=== PATIENT | female | born 2000 | race Caucasian/White ===

== ENCOUNTER 2018-02-10 11:46 | Inpatient (IN) | payer OTHER ==
[2018-02-10] MEDS ORDERED: NORMAL SALINE 1000 ML 1,000 ML IV ONE ×2 (12:48→16:27)
[2018-02-10 13:01] LABS: HEMOGLOBIN 11.9 g/dL (12.0-15.5); MEAN CORPUSCULAR HGB CONC 33.9 g/dL (32.0-36.0); MEAN CORPUSCULAR VOLUME 88 fl (80-97); PLATELET COUNT 214 10^3/uL (150-450); RED BLOOD COUNT 3.96 10^6/uL (3.72-5.28); RED CELL DISTRIBUTION WIDTH 14.1 % (11.5-14.0); WHITE BLOOD COUNT 20.8 10^3/uL (4.0-10.5)
[2018-02-10 13:05] LABS: ALANINE AMINOTRANSFERASE 24 U/L (5-35); ALBUMIN 3.9 g/dL (3.7-5.6); ALKALINE PHOSPHATASE 69 U/L (50-135); ANION GAP 16 (5-19); ASPARTATE AMINO TRANSFERASE 34 U/L (5-30); BILIRUBIN,DIRECT 0.3 mg/dL (0.0-0.4); BILIRUBIN,TOTAL 0.5 mg/dL (0.2-1.3); BLOOD UREA NITROGEN 8 mg/dL (7-20); CALCIUM 9.2 mg/dL (8.4-10.2); CARBON DIOXIDE 17 mmol/L (22-30); CHLORIDE 102 mmol/L (98-107); GLUCOSE 123 mg/dL (75-110); POTASSIUM 3.5 mmol/L (3.6-5.0); SODIUM 135.4 mmol/L (137-145); TOTAL PROTEIN 7.2 g/dL (6.3-8.2)
[2018-02-10 13:15] LABS: ABSOLUTE LYMPHOCYTES# (MANUAL) 0.4 10^3/uL (0.5-4.7); ABSOLUTE NEUTROPHILS# (MANUAL) 19.3 10^3/uL (1.7-8.2); BASOPHILS % (MANUAL) 0 % (0-2); EOSINOPHILS % (MANUAL) 0 % (0-6); LYMPHOCYTES % (MANUAL) 2 % (13-45); MONOCYTES % (MANUAL) 5 % (3-13); SEGMENTED NEUTROPHILS % (MAN) 93 % (42-78); TOTAL CELLS COUNTED 100
[2018-02-10 13:17] LABS: ANISOCYTOSIS SLIGHT; OVALOCYTES SLIGHT; PLATELET CLUMPS PRESENT; PLATELET COMMENT ADEQUATE; POIKILOCYTOSIS SLIGHT; TOXIC GRANULATION 1+; TOXIC VACUOLATION PRESENT
[2018-02-10] MEDS ORDERED: ACETAMINOPHEN 325 MG TABLET PO ONE ×2 (13:39→16:28)
--- NOTE | 2018-02-10 13:39 | ER Document Report ---
ED General - General Chief Complaint: Nausea/Vomiting Stated Complaint: FEVER,VOMITING Time Seen by Provider: 02/10/18 12:10 Mode of Arrival: Ambulatory Information source: Patient TRAVEL OUTSIDE OF THE [place] IN LAST 30 DAYS: No - HPI Patient complains to provider of: Fever body aches side pain Onset: Other - This 17-year-old female, 19 weeks presents for evaluation of pain along the right side as well as fever with some associated cough, she was seen in urgent care yesterday which time she underwent dip urinalysis was told that she did not have a urinary tract infection and will be fine was subsequently sent home. She is use Tylenol once since then to try and help with her fever but has not used any other things to try and help with it. Nothing seemed to make it any better, nothing seemed to make any worse she has had her gallbladder removed in the past because she does have some issues related to her gastrointestinal tract. - Related Data Allergies/Adverse Reactions: cinnamon Allergy (Verified 02/10/18 11:47) Latex, Natural Rubber Allergy (Verified 02/10/18 11:47) Past Medical History - General Information source: Patient - Social History Smoking Status: Never Smoker Chew tobacco use (# tins/day): No Frequency of alcohol use: None Drug Abuse: None Family History: None Patient has suicidal ideation: No Patient has homicidal ideation: No Renal/ Medical History: Denies: Hx Peritoneal Dialysis Review of Systems - Review of Systems -: Yes All other systems reviewed and negative Physical Exam - Vital signs Vitals: Temp Pulse Resp BP Pulse Ox 100.2 F 165 H 21 89/41 L 97 02/10/18 11:50 02/10/18 11:50 02/10/18 11:50 02/10/18 11:50 02/10/18 11:50 - General General appearance: Appears well In distress: None - HEENT Head: Normocephalic Eyes: Normal Conjunctiva: Normal Cornea: Normal Extraocular movements intact: Yes Ears: Normal External canal: Normal Nasal: Normal Mouth/Lips: Normal Mucous membranes: Normal - Respiratory Respiratory status: No respiratory distress Chest status: Nontender Breath sounds: Normal Chest palpation: Normal - Cardiovascular Rhythm: Tachycardia Heart sounds: Normal auscultation Murmur: No - Abdominal Inspection: Normal, Other - Obviously gravid abdomen Distension: No distension Tenderness: Nontender - Back Back: Normal - Extremities General upper extremity: Normal inspection, Nontender, Normal strength, Normal temperature General lower extremity: Normal inspection, Nontender, Normal strength, Normal temperature - Neurological Neuro grossly intact: Yes Cognition: Normal Orientation: AAOx4 Betsy Coma Scale Eye Opening: Spontaneous [place] Coma Scale Verbal: Oriented [place] Coma Scale Motor: Obeys Commands Betsy Coma Scale Total: 15 - Psychological Associated symptoms: Normal affect Course - Re-evaluation Re-evalutation: 02/10/18 17:01 This 17-year-old woman presented for evaluation of fevers as well as flank pain. Have concerned this may represent pyelonephritis or potential renal stone with infection, could also have a developing pneumonia she does endorse that she does have a cough. Was seen in urgent care yesterday underwent a urine dip which did not demonstrate any obvious infection. Patient is profoundly tachycardic with low blood pressure on arrival, she is also febrile. We will administer fluid resuscitation with 2 L of normal saline, will obtain a lactate blood count CMP and obtain urinalysis as well as cultures. Patient's heart rate improved after administration of 2 L normal saline, administered Tylenol to help patient's fever. Urinalysis is nondiagnostic however patient clinically has symptoms suggestive of pyelonephritis, will obtain renal ultrasound to assess for possible developing hydro-nephrosis. We will also obtain chest x-ray for possible developing pneumonia. No pneumonia identified on patient's chest x-ray, no identified hydronephrosis left side of the normal range along the right kidney. We will administer Rocephin IV for patient's probable urinary tract infection. Have contacted on-call sizing sprayer Dr. Peres to evaluate patient for admission and observation, at this time she remains modestly tachycardic with a normal blood pressure. She says that she feels a little bit better after fluids and antibiotics. We will plan for continued monitoring and reassessment as necessary. Her elevated lactate will be rechecked initially was 2.8. - Vital Signs Vital signs: Temp Pulse Resp BP Pulse Ox 101 F H 165 H 23 109/52 L 100 02/10/18 14:51 02/10/18 11:50 02/10/18 14:00 02/10/18 14:00 02/10/18 14:00 - Laboratory Result Diagrams: 02/10/18 12:00 02/10/18 12:00 Laboratory results interpreted by me: 02/10/18 02/10/18 02/10/18 12:00 12:00 13:04 WBC 20.8 H Hgb 11.9 L Hct 35.0 L RDW 14.1 H Seg Neuts % (Manual) 93 H Lymphocytes % (Manual) 2 L Abs Neuts (Manual) 19.3 H Abs Lymphs (Manual) 0.4 L Sodium 135.4 L Potassium 3.5 L Carbon Dioxide 17 L Glucose 123 H Lactic Acid AST 34 H Urine Protein 30 H Urine Ketones 20 H 02/10/18 13:30 WBC Hgb Hct RDW Seg Neuts % (Manual) Lymphocytes % (Manual) Abs Neuts (Manual) Abs Lymphs (Manual) Sodium Potassium Carbon Dioxide Glucose Lactic Acid 2.8 H AST Urine Protein Urine Ketones Critical Care Note - Critical Care Note Total time excluding time spent on procedures (mins): 20 Discharge - Discharge Clinical Impression: Pyelonephritis Condition: Fair Disposition: ADMITTED INPATIENT Admitting Provider: Austen Peres Unit Admitted: Medical Floor
[2018-02-10 13:43] LABS: APPEARANCE,URINE SLIGHTLY-CLOUDY; BILIRUBIN,URINE NEGATIVE (NEGATIVE); COLOR,URINE YELLOW; GLUCOSE, URINE NEGATIVE (NEGATIVE); KETONES,URINE 20 mg/dL (NEGATIVE); LEUKOCYTE ESTERASE,URINE NEGATIVE (NEGATIVE); NITRITE,URINE NEGATIVE (NEGATIVE); PROTEIN,URINE 30 mg/dL (NEGATIVE); URINE SPECIFIC GRAVITY 1.023; UROBILINOGEN,URINE NEGATIVE mg/dL (<2.0)
[2018-02-10] MEDS ORDERED: CEFTRIAXONE INJ 1000 MG VIAL IV ONE (14:31)
--- NOTE | 2018-02-10 14:58 | EKG REPORT ---
SEVERITY:- ABNORMAL ECG - SINUS TACHYCARDIA NONSPECIFIC T ABNORMALITIES, INFERIOR LEADS : Confirmed by: Edgar Ni MD 10-Feb-2018 14:57:56
--- NOTE | 2018-02-10 15:56 | RADIOLOGY REPORT (SQ) ---
EXAM DESCRIPTION: CHEST 2 VIEWS COMPLETED DATE/TIME: 02/10/2018 2:50 pm REASON FOR STUDY: fever and cough , fever, vomiting for 2 days COMPARISON: None. EXAM PARAMETERS: NUMBER OF VIEWS: two views TECHNIQUE: Digital Frontal and Lateral radiographic views of the chest acquired. Patient's abdomen p shola was double shielded during the exposure RADIATION DOSE: NA LIMITATIONS: none FINDINGS: LUNGS AND PLEURA: No opacities, masses or pneumothorax. No pleural effusion. MEDIASTINUM AND HILAR STRUCTURES: No masses or contour abnormalities. HEART AND VASCULAR STRUCTURES: Heart normal size. No evidence for failure. BONES: No acute findings. HARDWARE: Clips right upper quadrant post cholecystectomy. OTHER: Patient was double shielded during the exposures IMPRESSION: NO ACUTE RADIOGRAPHIC FINDING IN THE CHEST. TECHNICAL DOCUMENTATION: JOB ID: [id number] [employer]- All Rights Reserved Reading location - IP/workstation name: [email or web address]
--- NOTE | 2018-02-10 16:20 | RADIOLOGY REPORT (SQ) ---
EXAM DESCRIPTION: U/S RETROPERITON (RENAL/AORTA) COMPLETED DATE/TIME: 02/10/2018 3:58 pm REASON FOR STUDY: right sided hydro concern COMPARISON: None. TECHNIQUE: Dynamic and static grayscale images acquired of the kidneys and bladder and recorded on P ACS. Additional selected color Doppler and spectral images recorded. LIMITATIONS: None. FINDINGS: RIGHT KIDNEY: Normal size, 11.2 cm in length normal echogenicity. No solid or suspicious m asses. No calcifications. AP diameter of the right renal pelvis measures 10 mm in diameter. This is within normal range for th e patient's 19 weeks . LEFT KIDNEY: Normal size, 10.4 cm in length. Normal echogenicity. No solid or suspicious masses. No hydronephrosis. No calcifications. BLADDER: Decompressed, not well seen. OTHER FINDINGS: No other significant finding. IMPRESSION: Mild prominence of the right renal pelvis which is still within normal limits given the patient's gestational status. No left hydronephrosis. No right or left urinary calculi are identified. TECHNICAL DOCUMENTATION: JOB ID: [id number] [employer]- All Rights Reserved Reading location - IP/workstation name: [email or web address]
--- NOTE | 2018-02-10 17:35 | PDOC H&P ---
History of Present Illness Admission Date/PCP: 02/10/18 17:08 Patient complains of: Fever and right flank pain. History of Present Illness: KASSIDY BEARD is a 17 year old female 17 yo G1 at 19 wks of with fever, and right flank pain seen in the ER today. She recently moved from [place]. She was seen at urgent care yesterday and did not improve and presented to the ER today. Past Surgical History Past Surgical History: Reports: None Social History Smoking Status: Never Smoker Family History Family History: None Parental Family History Reviewed: Yes Children Family History Reviewed: Yes Sibling(s) Family History Reviewed.: Yes Medication/Allergy Allergies/Adverse Reactions: cinnamon Allergy (Verified 02/10/18 11:47) Latex, Natural Rubber Allergy (Verified 02/10/18 11:47) Review of Systems Constitutional: PRESENT: chills, fever(s) Gastrointestinal: PRESENT: vomiting Musculoskeletal: PRESENT: back pain Physical Exam - Physical Exam Vital Signs: Temp Pulse Resp BP Pulse Ox 101 F H 165 H 23 109/52 L 100 02/10/18 14:51 02/10/18 11:50 02/10/18 14:00 02/10/18 14:00 02/10/18 14:00 Intake & Output 02/09/18 02/10/18 02/11/18 06:59 06:59 06:59 Intake Total 1000 Balance 1000 General appearance: PRESENT: no acute distress Head exam: PRESENT: atraumatic Eye exam: PRESENT: conjunctiva pink, EOMI, PERRLA. ABSENT: scleral icterus Ear exam: PRESENT: normal external ear exam Cardiovascular exam: PRESENT: RRR. ABSENT: diastolic murmur, rubs, systolic murmur Pulses: PRESENT: normal dorsalis pedis pul, +2 pedal pulses bilateral GI/Abdominal exam: PRESENT: normal bowel sounds, soft. ABSENT: distended, guarding, mass, organolmegaly, rebound, tenderness Rectal exam: PRESENT: deferred Extremities exam: PRESENT: full ROM. ABSENT: calf tenderness, clubbing, pedal edema Musculoskeletal exam: PRESENT: ambulatory - tender on right flank Psychiatric exam: PRESENT: appropriate affect, normal mood. ABSENT: homicidal ideation, suicidal ideation Skin exam: PRESENT: dry, intact, warm. ABSENT: cyanosis, rash Result Impressions: Chest X-Ray 02/10/18 14:32 IMPRESSION: NO ACUTE RADIOGRAPHIC FINDING IN THE CHEST. Renal Ultrasound 02/10/18 15:08 IMPRESSION: Mild prominence of the right renal pelvis which is still within normal limits given the patient's gestational status. No left hydronephrosis. No right or left urinary calculi are identified. Assessment & Plan - Diagnosis (1) Pyelonephritis Is this a current diagnosis for this admission?: Yes Plan: IV antibiotics and IV fluids. - Time Time Spent: 30 to 50 Minutes
[2018-02-10] MEDS: RINGERS SOLUTION,LACTATED 1,000 ML IV PRN (18:30)
[2018-02-10] MEDS ORDERED: CEFTRIAXONE 1 GM/D5W RTU 1 GM/50 ML RTUPB IV SCH (22:00)
[2018-02-10] MEDS ORDERED: CEFTRIAXONE INJ 500 MG VIAL ONE (22:45)
[2018-02-10] MEDS: ACETAMINOPHEN 325 MG TABLET PO PRN (23:07)
[2018-02-11] MEDS: RINGERS SOLUTION,LACTATED 1,000 ML IV PRN ×3 (01:39→19:45)
[2018-02-11 07:25] LABS: HEMATOCRIT 29.5 % (36.0-47.0); HEMOGLOBIN 10.2 g/dL (12.0-15.5); MEAN CORPUSCULAR HEMOGLOBIN 30.6 pg (27.0-33.4); MEAN CORPUSCULAR HGB CONC 34.5 g/dL (32.0-36.0); MEAN CORPUSCULAR VOLUME 89 fl (80-97); PLATELET COUNT 162 10^3/uL (150-450); RED BLOOD COUNT 3.32 10^6/uL (3.72-5.28); WHITE BLOOD COUNT 20.2 10^3/uL (4.0-10.5)
[2018-02-11] MEDS: ACETAMINOPHEN 325 MG TABLET PO PRN ×3 (08:56→21:57)
[2018-02-11] MEDS ORDERED: ONDANSETRON HCL INJ/PF 4 MG/2 ML SDV IV PRN (09:42)
[2018-02-11] MEDS: CEFTRIAXONE SODIUM 1,000 MG in NORMAL SALINE 50 ML IV SCH ×2 (09:43→21:57)
[2018-02-11] MEDS: PRENATAL VITAMIN W DHA CAPSULE PO SCH (09:48)
[2018-02-11] MEDS ORDERED: CEFTRIAXONE SODIUM 1,000 MG in DEXTROSE 5%-WATER 50 ML IV SCH (10:00)
--- NOTE | 2018-02-11 10:41 | PDOC PROGRESS REPORT ---
Subjective Progress Note for:: 02/11/18 Subjective:: right flank pain, fever, pyelo Reason For Visit: PYELONEPHRITIS Physical Exam - Physical Exam Vital Signs: Temp Pulse Resp BP Pulse Ox 99.4 F 121 H 22 110/54 L 97 02/11/18 07:56 02/11/18 07:56 02/11/18 07:56 02/11/18 07:56 02/11/18 07:56 Intake & Output 02/10/18 02/11/18 02/12/18 06:59 06:59 06:59 Intake Total 2594 Output Total 400 Balance 2194 General appearance: PRESENT: no acute distress, well-developed, well-nourished Head exam: PRESENT: atraumatic, normocephalic Respiratory exam: PRESENT: clear to auscultation abbey, symmetrical, unlabored Cardiovascular exam: PRESENT: RRR. ABSENT: diastolic murmur, rubs, systolic murmur Pulses: PRESENT: normal dorsalis pedis pul, +2 pedal pulses bilateral Vascular exam: PRESENT: normal capillary refill GI/Abdominal exam: PRESENT: normal bowel sounds, soft, other - right CVAT. ABSENT: distended, guarding, mass, organolmegaly, rebound, tenderness Rectal exam: PRESENT: deferred Extremities exam: PRESENT: full ROM. ABSENT: calf tenderness, clubbing, pedal edema Neurological exam: PRESENT: alert, awake, oriented to person, oriented to place , oriented to time, oriented to situation, CN II-XII grossly intact. ABSENT: motor sensory deficit Psychiatric exam: PRESENT: appropriate affect, normal mood. ABSENT: homicidal ideation, suicidal ideation Skin exam: PRESENT: dry, intact, warm. ABSENT: cyanosis, rash Result Laboratory Results: 02/11/18 07:01 02/11/18 07:01 WBC 20.2 H RBC 3.32 L Hgb 10.2 L Hct 29.5 L MCV 89 MCH 30.6 MCHC 34.5 RDW 14.0 Plt Count 162 Impressions: Chest X-Ray 02/10/18 14:32 IMPRESSION: NO ACUTE RADIOGRAPHIC FINDING IN THE CHEST. Renal Ultrasound 02/10/18 15:08 IMPRESSION: Mild prominence of the right renal pelvis which is still within normal limits given the patient's gestational status. No left hydronephrosis. No right or left urinary calculi are identified. Status: Imported from PACS Assessment & Plan - Diagnosis (1) Pyelonephritis Is this a current diagnosis for this admission?: Yes Plan: Pyelonephritis in . Cont BID rocephin IV. ANtipyretics and Antiemetics ordered. Pt's room is very hot. Reviewed with nursing/FPGA ENGINEER to not turn up temp in room as this patient is febrile. Last fever was 103 just recently. If still febrile after 48 hours will need repeat imagin of kidney. only recieved 3 doses of abx at this time. Cont abx. Repeat labs this pm and tomorrow am. (2) Pyelonephritis affecting in second trimester Is this a current diagnosis for this admission?: Yes Plan: 19wks. f/u with OB as outpatient. - Time Time Spent with patient: 15-24 minutes Medications reviewed and adjusted accordingly: Yes Anticipated discharge: Home Within: within 72 hours - Inpatient Certification Based on my medical assessment, after consideration of the patient's comorbidities, presenting symptoms, or acuity I expect that the services needed warrant INPATIENT care.: Yes I certify that my determination is in accordance with my understanding of Medicare's requirements for reasonable and necessary INPATIENT services [42 CFR 412.3e].: Yes Medical Necessity: Failure to Improve With Outpatient Therapy, Need For IV Fluids, Need for IV Antibiotics, Risk of Complication if Not Cared For in Hospital
[2018-02-11 17:42] LABS: HEMATOCRIT 27.2 % (36.0-47.0); HEMOGLOBIN 9.3 g/dL (12.0-15.5); MEAN CORPUSCULAR VOLUME 88 fl (80-97); PLATELET COUNT 153 10^3/uL (150-450); RED BLOOD COUNT 3.09 10^6/uL (3.72-5.28); RED CELL DISTRIBUTION WIDTH 14.1 % (11.5-14.0); WHITE BLOOD COUNT 17.8 10^3/uL (4.0-10.5)
[2018-02-12] MEDS: RINGERS SOLUTION,LACTATED 1,000 ML IV PRN ×3 (04:46→22:51)
[2018-02-12] MEDS: ACETAMINOPHEN 325 MG TABLET PO PRN ×2 (08:05→17:40)
[2018-02-12] MEDS: PRENATAL VITAMIN W DHA CAPSULE PO SCH (09:40)
[2018-02-12] MEDS: CEFTRIAXONE SODIUM 1,000 MG in NORMAL SALINE 50 ML IV SCH ×2 (09:41→21:55)
--- NOTE | 2018-02-12 09:53 | PDOC PROGRESS REPORT ---
Subjective Progress Note for:: 02/12/18 Subjective:: feeling much better today. last temp >100.4 at 11:00 am yesterday. tolerating a regular diet without difficulty. Is feeling occasional flutters. Reason For Visit: PYELONEPHRITIS Physical Exam - Physical Exam Vital Signs: Temp Pulse Resp BP Pulse Ox 98.9 F 99 H 20 109/58 L 100 02/12/18 08:26 02/12/18 08:26 02/12/18 08:26 02/12/18 08:26 02/12/18 08:26 Intake & Output 02/11/18 02/12/18 02/13/18 06:59 06:59 06:59 Intake Total 2594 4871 Output Total 400 Balance 2194 4871 Weight 52.3 kg General appearance: PRESENT: no acute distress, cooperative GI/Abdominal exam: PRESENT: soft - gravid at umbilicus Result Laboratory Results: 02/11/18 17:16 02/11/18 02/11/18 17:16 17:16 WBC 17.8 H RBC 3.09 L Hgb 9.3 L Hct 27.2 L MCV 88 MCH 30.0 MCHC 34.0 RDW 14.1 H Plt Count 153 Lactic Acid 0.9 Impressions: Chest X-Ray 02/10/18 14:32 IMPRESSION: NO ACUTE RADIOGRAPHIC FINDING IN THE CHEST. Renal Ultrasound 02/10/18 15:08 IMPRESSION: Mild prominence of the right renal pelvis which is still within normal limits given the patient's gestational status. No left hydronephrosis. No right or left urinary calculi are identified. Assessment & Plan - Diagnosis (1) Pyelonephritis Is this a current diagnosis for this admission?: Yes (2) Pyelonephritis affecting in second trimester Is this a current diagnosis for this admission?: Yes - Time Time Spent with patient: Less than 15 minutes Smoking Cessation Education: 3 to 10 minutes Medications reviewed and adjusted accordingly: Yes Anticipated discharge: Home Within: within 24 hours - plan for discharge in AM with continued improvement.
[2018-02-13 03:48] VITALS: BP 96/48
--- NOTE | 2018-02-13 07:04 | PDOC DISCHARGE SUMMARY ---
General - Admit/Disc Date/PCP Admission Date/Primary Care Provider: 02/10/18 17:08 Discharge Date: 02/13/18 - Discharge Diagnosis (1) Pyelonephritis Is this a current diagnosis for this admission?: Yes (2) Pyelonephritis affecting in second trimester Is this a current diagnosis for this admission?: Yes - Additional Information Home Medications: Ferrous Sulfate 1 tab PO DAILY 02/10/18 95/Iron Fum/Folic/Dha [ + Dha Combo Pack] 1 tab PO DAILY History of Present Illness History of Present Illness: KASSIDY BEARD is a 17 year old female Hospital Course Hospital Course: has responded well to antibiotics. pain much improved. Physical Exam - Physical Exam Vital Signs: Temp Pulse Resp BP Pulse Ox 98.7 F 84 16 96/48 L 99 02/13/18 03:48 02/13/18 03:48 02/13/18 03:48 02/13/18 03:48 02/13/18 03:48 Intake & Output 02/12/18 02/13/18 02/14/18 06:59 06:59 06:59 Intake Total 4871 2670 Balance 4871 2670 Weight 52.3 kg General appearance: PRESENT: no acute distress, cooperative GI/Abdominal exam: PRESENT: soft - no CVA tenderness on percussion Result Impressions: Chest X-Ray 02/10/18 14:32 IMPRESSION: NO ACUTE RADIOGRAPHIC FINDING IN THE CHEST. Renal Ultrasound 02/10/18 15:08 IMPRESSION: Mild prominence of the right renal pelvis which is still within normal limits given the patient's gestational status. No left hydronephrosis. No right or left urinary calculi are identified. Plan Discharge Plan: discharge home with cont'd oral antibiotics. keep her scheduled appt with [facility] Time Spent: Less than 30 Minutes
[2018-02-13 07:19] LABS: HEMOGLOBIN 8.7 g/dL (12.0-15.5); RED BLOOD COUNT 2.83 10^6/uL (3.72-5.28)
[2018-02-13 07:44] LABS: HEMATOCRIT 24.8 % (36.0-47.0); MEAN CORPUSCULAR HEMOGLOBIN 30.9 pg (27.0-33.4); MEAN CORPUSCULAR HGB CONC 35.2 g/dL (32.0-36.0); MEAN CORPUSCULAR VOLUME 88 fl (80-97); PLATELET COUNT 155 10^3/uL (150-450); RED CELL DISTRIBUTION WIDTH 14.4 % (11.5-14.0); WHITE BLOOD COUNT 9.2 10^3/uL (4.0-10.5)
== END 2018-02-13 08:30 | disposition home or self-care (01) | DRG 781 ==
LOC: ER 11:46 → EH 17:08 → 2S 18:20
PROVIDERS: ADMIT Obstetrics & Gynecology; ATTEND Obstetrics & Gynecology
DX: O23.02 Infections of kidney in pregnancy, second trimester (principal); Z91.040 Latex allergy status; Z91.018 Allergy to other foods; Z3A.19 19 weeks gestation of pregnancy
CPT/HCPCS: 36415; 71046; 76770; 80053; 81001; 83605; 85025; 85027; 87040; 87086; 87088; 87186; 93005; 93010; 99285; J0696; J2405; J3490; J7030; J7120

== ENCOUNTER 2018-06-10 09:09 | Outpatient (CLI) | payer OTHER ==
--- NOTE | 2018-06-10 09:48 | Non Stress Test Report ---
Non Stress Test Datetime Report Generated by CPN: 06/10/2018 09:47 DEMOGRAPHIC EGA NST: 34.6 INDICATION Indication for Study: Ordered by Provider MONITORING Monitor Explained: Monitor Explained; Test Explained; Patient Verbalized Understanding Time on Monitor: 06/10/2018 09:16 Time off Monitor: 06/10/2018 09:40 NST Duration: 24 NST INTERVENTIONS NST Interventions: None Physician Notified NST: Dr. Mead BABY A: [id number] BABY A Movement : Present Contraction Frequency : none FHR Baseline : 135 Accelerations : 15X15 Decelerations : None Variability : Moderate 6-25bpm NST Review: Meets Criteria for Reactive NST NST Review and Verified By : Pk Barker RN NSSiomara Results: Reactive NST REPORT Report Trigger: Send Report
== END 2018-06-10 09:43 | disposition home or self-care (01) ==
LOC: LC 09:09
PROVIDERS: ATTEND Student in an Organized Health Care Education/Training Program
PROC: 4A1HXCZ Monitoring of Products of Conception, Cardiac Rate, External Approach (ICD-10-PCS; principal; 2018-06-10)
DX: Z34.93 Encounter for supervision of normal pregnancy, unspecified, third trimester (principal)
CPT/HCPCS: 59025

== ENCOUNTER 2018-07-22 05:32 | Inpatient (IN) | payer OTHER ==
[2018-07-22] MEDS ORDERED: RINGERS SOLUTION,LACTATED 300 ML IV ONE (05:46)
[2018-07-22] MEDS ORDERED: MISOPROSTOL 0.1 MG TABLET PV ONE (06:27)
[2018-07-22] MEDS ORDERED: MISOPROSTOL 0.1 MG TABLET ONE (06:28)
[2018-07-22] MEDS: RINGERS SOLUTION,LACTATED 1,000 ML IV PRN ×2 (06:34→16:14)
[2018-07-22 06:42] LABS: ABSOLUTE EOSINOPHILS # (AUTO) 0.2 10^3/uL (0.0-0.6); ABSOLUTE LYMPHOCYTES (AUTO) 2.3 10^3/uL (0.5-4.7); ABSOLUTE NEUT (AUTO) 7.1 10^3/uL (1.7-8.2); BASOPHILS % (AUTO) 0.4 % (0-2); EOSINOPHILS % (AUTO) 2.1 % (0-6); HEMATOCRIT 31.7 % (36.0-47.0); HEMOGLOBIN 10.8 g/dL (12.0-15.5); LYMPHOCYTES % (AUTO) 21.4 % (13-45); MEAN CORPUSCULAR HGB CONC 33.9 g/dL (32.0-36.0); MEAN CORPUSCULAR VOLUME 86 fl (80-97); MONOCYTES % (AUTO) 9.6 % (3-13); PLATELET COUNT 208 10^3/uL (150-450); RED BLOOD COUNT 3.71 10^6/uL (3.72-5.28); RED CELL DISTRIBUTION WIDTH 13.8 % (11.5-14.0); SEGMENTED NEUTROPHILS % (AUTO) 66.5 % (42-78); TOTAL CELLS COUNTED % (AUTO) 100 %; WHITE BLOOD COUNT 10.6 10^3/uL (4.0-10.5)
[2018-07-22 06:49] LABS: APPEARANCE,URINE SLIGHTLY-CLOUDY; BILIRUBIN,URINE NEGATIVE (NEGATIVE); COLOR,URINE YELLOW; GLUCOSE, URINE NEGATIVE (NEGATIVE); KETONES,URINE NEGATIVE (NEGATIVE); LEUKOCYTE ESTERASE,URINE MODERATE (NEGATIVE); NITRITE,URINE NEGATIVE (NEGATIVE); PROTEIN,URINE NEGATIVE (NEGATIVE); URINE SPECIFIC GRAVITY 1.009; UROBILINOGEN,URINE NEGATIVE mg/dL (<2.0)
[2018-07-22 06:51] LABS: URINE AMPHETAMINES SCREEN NEGATIVE; URINE BARBITURATES SCREEN NEGATIVE; URINE BENZODIAZEPINES SCREEN NEGATIVE; URINE COCAINE SCREEN NEGATIVE; URINE MARIJUANA (THC) SCREEN NEGATIVE; URINE METHADONE SCREEN NEGATIVE; URINE PHENCYCLIDINE SCREEN NEGATIVE
--- NOTE | 2018-07-22 12:24 | Admission Physical ---
Datetime Report Generated by CPN: 07/22/2018 12:23 CURRENT ADMISSION Chief Complaint: Scheduled Induction of Labor Indication for Induction: Post Dates Admit Impression : Term, Intrauterine Admit Plan: Admit to Unit; Initiate Labor Induction Protocol ALLERGIES Medication Allergies: No Medication Allergies: Latex, Natural Rubber (07/22/2018); cinnamon (07/22/2018) Latex: Latex Allergies Food Allergies: Cinnamon OBSTETRICAL HISTORY EDC: 07/16/2018 00:00 : 1 Para: 0 Term: 0 : 0 SAB: 0 IAB: 0 Ectopic: 0 Livin Cesareans: 0 VBACs: 0 Multiple Births: 0 Gestational Diabetes: No Rh Sensitization: No Incompetent Cervix: No JULIETA: No Infertility: No ART Treatment: No Uterine Anomaly: No IUGR: No Hx Previous C/S: No Macrosomia: No Hx Loss/Stillborn: No PIH: No Hx : No Placenta Previa/Abruption: No Depression/PP Depression: No PTL/PROM: No Post Hemorrhage: No Current Procedures: Ultrasound; NST Obstetrical History Comments: G1-Current SEE RECORDS Alcohol: No Marijuana : No Cocaine: No Other Illicit Drugs: No Cigarettes: Never Smoker. [id number] MEDICAL HISTORY Diabetes: No Blood Transfusion: No Pulmonary Disease (Asthma, TB): No Breast Disease: No Hypertension: No Golf Cart Maker Surgery: No Heart Disease: No Hosp/Surgery: Yes Autoimmune Disorder: No Anesthetic Complications: No Kidney Disease: No Abnormal Pap Smear: No Neuro/Epilepsy: No Psychiatric Disorders: No Other Medical Diseases: No Hepatitis/Liver Disease: No Significant Family History: No Varicosities/Phlebitis: No Trauma/Violence : No Thyroid Dysfunction: No Medical History Comments: Gallbladder removed-2015 INFECTIOUS HISTORY Gonorrhea: No Genital Herpes: No Chlamydia: Yes Tuberculosis: No Syphilis: No Hepatitis: No HIV/AIDS Exposure: No Rash or Viral Illness: No HPV: No Infectious History Comments: Hx Chlamydia (prior to ) PHYSICAL EXAM General: Normal HEENT: Normal Neurologic: Normal Thyroid: Deferred Heart: Normal Lungs: Normal Breast: Deferred Back: Normal Abdomen: Normal Genitourinary Exam: Normal Extremities: Normal DTRs: Deferred Pelvic Type: Adequate Vital Signs: Reviewed; Within Normal Limits VAGINAL EXAM Dilatation: 1 Effacement: 75 Station: -1 Contraction Comments: irreg FETUS A EGA: 40.6 Monitoring: External US FHR- Baseline: 120 Variability: Moderate 6-25bpm Accelerations: 15X15 Decelerations: None Estimated Weight (gm): 3100 Presentation: Vertex Admit Comment: at 40w6d admitted for IOL. received one dose of cytotec. Cook catheter placed without difficulty at 1140, tolerated well. P:c/w dr mead, will start pitocin, anticipate PLANS FOR LABOR AND DELIVERY Labor and Delivery: None Pain Management: Medications; Epidural Feeding Preference: Formula Benefit of Breast Feed Discussed: Yes Circumcision: No INFORMED CONSENT Assignment: Desiree Mead MD Signature: with User ID: [email or web address] : with User ID: [email or web address]
[2018-07-22] MEDS ORDERED: NALBUPHINE HCL INJ 10 MG/1 ML AMPULE ONE (12:25)
[2018-07-22] MEDS ORDERED: PROMETHAZINE HCL INJ 25 MG/1 ML VIAL ONE (12:25)
[2018-07-22] MEDS ORDERED: PROMETHAZINE HCL INJ 25 MG/1 ML VIAL IV ONE (12:27)
[2018-07-22] MEDS ORDERED: NALBUPHINE HCL INJ 10 MG/1 ML AMPULE INJ ONE (12:27)
[2018-07-22] MEDS ORDERED: OXYTOCIN/NORMAL SALINE 20 UNIT/1,000 ML RTUINJ IV PRN (12:31)
--- NOTE | 2018-07-22 15:57 | L&D Progress Notes ---
PROGRESS NOTES Datetime Report Generated by CPN: 07/22/2018 15:57 PROGRESS NOTE Impression: Normal Progression of Labor Procedures: Sterile Vag Exam Plan: Continue Present Management; Induction Vital Signs : Reviewed; Within Normal Limits Comment: cook catheter out, pitocin not yet started by RN-contractions are irreg with coupling and tripling. continue IOL, start pitocin when needed, anticipate . VAGINAL EXAM Dilatation: 1 Effacement: 75 Station: -1 Contractions: irreg LAST VAGINAL EXAM-NURSING Dilitation: 4.0 Dilitation: 1.0 Dilitation: 1.0 Dilitation: 1.0 Effacement: 80 Effacement: 50 Effacement: 50 Effacement: th Station: -2 Station: -2 Station: -2 Station: -2 MEMBRANES Membranes: Bulging FETUS A FHR - Baseline: 115 Monitoring: External US Variability: Minimal - Undetectable to <=5bpm Accelerations: 10X10 Decelerations: None : 40+6 Estimated Weight (gm): 3100 Presentation: Vertex SIGNATURE SIGNATURE: [id number];[id number];[id number] SIGNATURE: [id number];[id number] SIGNATURE: [id number] Assignment: Desiree Mead MD Signature: with User ID: [email or web address] : with User ID: [email or web address]
[2018-07-22] MEDS ORDERED: OXYTOCIN/NORMAL SALINE 0 UNIT/0 ML RTUINJ ONE (18:35)
--- NOTE | 2018-07-22 19:41 | L&D Progress Notes ---
PROGRESS NOTES Datetime Report Generated by CPN: 07/22/2018 19:41 PROGRESS NOTE Impression: Normal Progression of Labor Procedures: Artificial ROM; Sterile Vag Exam Plan: Continue Present Management; Induction; Anticipate Vaginal Delivery Informed Consent Obtained: Vaginal Delivery; Induction of Labor; Risks, Benefits and Alternatives Discussed Comment: Cvx 5/60/-2. AROM performed with clear fluid. Post GARIMA IOL. Pt considering epidural. May have epidural when she desires. Anticipate . VAGINAL EXAM Dilatation: 5 Effacement: 60 Station: -2 Contractions: q 2-3 Dilitation: 5.0 Dilitation: 5.0 Effacement: 60 Station: -2 MEMBRANES Membranes: Ruptured Amniotic Fluid Color: Clear FETUS A FHR - Baseline: 125 Monitoring: External US Variability: Moderate 6-25bpm Accelerations: 15X15 Decelerations: None FHR Category: Category I FETUS C SIGNATURE: [id number];[id number];[id number] Signature: with User ID: [email or web address]
[2018-07-22] MEDS ORDERED: EPHEDRINE SULFATE INJ 50 MG/1 ML AMPULE ONE (19:45)
[2018-07-22] MEDS ORDERED: LIDOCAINE 1% INJ-PF (10 MG/ML) 30 ML SDV ONE (19:45)
[2018-07-22] MEDS ORDERED: MISOPROSTOL 0.2 MG TABLET ONE (19:45)
[2018-07-22] MEDS ORDERED: OXYTOCIN/NORMAL SALINE 20 UNIT/1,000 ML RTUINJ ONE (19:45)
[2018-07-22] MEDS ORDERED: FENTANYL/BUPIVACAINE/NS/PF 300 MCG/150 ML RTUINJ EPI ONE (19:46)
[2018-07-22] MEDS ORDERED: BUPIVACAINE HCL 0.25 % INJ/PF (2.5 MG/1 ML) 30 ML VIAL ONE (19:46)
[2018-07-22] MEDS ORDERED: MAG HYDROX/AL HYDROX/SIMETH SUSP 30 ML UDCUP ONE (19:52)
[2018-07-23] MEDS ORDERED: DIPHENHYDRAMINE HCL 25 MG CAPSULE PO PRN (02:07)
[2018-07-23] MEDS ORDERED: ACETAMINOPHEN 325 MG TABLET PO PRN (02:07)
[2018-07-23] MEDS ORDERED: PROMETHAZINE HCL INJ 25 MG/1 ML VIAL IV PRN (02:07)
[2018-07-23] MEDS ORDERED: PSEUDOEPHEDRINE HCL 30 MG TABLET PO PRN (02:07)
[2018-07-23] MEDS ORDERED: MEASLES,MUMPS&RUBELLA VACC/PF 0.5 ML VIAL SUBCUT PRN (02:07)
[2018-07-23] MEDS ORDERED: ACETAMINOPHEN WITH CODEINE #3 TABLET PO PRN ×2 (02:07)
[2018-07-23] MEDS ORDERED: GLYCERIN/WITCH HAZEL LEAF 1 EACH MED..PAD TP PRN (02:07)
[2018-07-23] MEDS ORDERED: DIBUCAINE 1% OINTMENT 28 GM TP PRN (02:07)
[2018-07-23] MEDS ORDERED: PROMETHAZINE HCL 25 MG SUPP.RECT PR PRN (02:07)
[2018-07-23] MEDS ORDERED: MAGNESIUM HYDROXIDE SUSP 30 ML UDCUP PO PRN (02:07)
[2018-07-23] MEDS ORDERED: BENZOCAINE/MENTHOL AEROSOL SPRAY 56 ML TOP PRN (02:07)
[2018-07-23] MEDS ORDERED: NA PHOS,M-B/NA PHOS,DI-BA (ADULT) 133 ML ENEMA PR PRN (02:07)
[2018-07-23] MEDS ORDERED: ZOLPIDEM TARTRATE 5 MG TABLET PO PRN (02:07)
[2018-07-23] MEDS ORDERED: OXYTOCIN/NORMAL SALINE 20 UNIT/1,000 ML RTUINJ IV PRN (02:07)
[2018-07-23] MEDS ORDERED: DIPH/PERTUSS(ACELL)/TETANUS VAC/PF 0.5 ML SYR (>=10YO) IM PRN (02:07)
[2018-07-23] MEDS ORDERED: PROMETHAZINE HCL 25 MG TABLET PO PRN (02:07)
[2018-07-23] MEDS ORDERED: IBUPROFEN 800 MG TABLET PO ONE (02:45)
[2018-07-23] MEDS ORDERED: IBUPROFEN 800 MG TABLET ONE (03:00)
[2018-07-23] MEDS: IBUPROFEN 800 MG TABLET PO SCH ×3 (05:50→21:08)
--- NOTE | 2018-07-23 05:53 | Delivery Summary ---
Del Sum A-C Datetime Report Generated by CPN: 07/23/2018 05:53 DELIVERY PERSONNEL DELIVERY PERSONNEL: [id number] Delivery Doctor:: Desiree Mead MD Labor and Delivery Nurse:: Nanda Mccormack RNfood safety director Nurse:: Yadira Cabrera RN Nursery Nurse:: Zoie Hinson RN Bearing Maker/WEARING APPAREL FOLDER: Luzjosé antonio Chowdary, FLUX CORE WELDER MATERNAL INFORMATION Delivery Anesthesia: Epidural Medications After Delivery: Pitocin Drip 20 Units/1000ml NSS Estimated Blood Loss (ml): 100 Maternal Complications: None Provider Comments: VMI delivered in CEE presentation. No nuchal cord. Shoulders and body delivered without difficulty. Cord doubly clamped and cut and infant to maternal abd for NRP. Placenta delivered intact spontaneously. FF at U. Good hemostasis. Mother and baby stable upon provider leaving the room. LABOR SUMMARY EDC: 07/16/2018 00:00 No. Babies in Womb: 0 Attempted: No Labor Anesthesia: Epidural LABOR INFORMATION Reason for Induction: Postterm Onset of Labor: 07/23/2018 18:27 Complete Dilatation: 07/23/2018 01:38 Cervical Ripening Agents: Iglesias Balloon; Cytotec @ Other Ripening Agents: Cytotec/FB/Pitocin Oxytocin: Induction Group B Beta Strep: Negative Antibiotics # of Doses: 0 Antibiotics Time of Last Dose: N/A Name of Antibiotic Given: N/A Steroids Given: None Reason Steroids Not Administered: Not Applicable MEMBRANES Membranes Rupture Method: Artificial Rupture of Membranes: 07/22/2018 19:36 Length of Rupture (hr): 6.37 Amniotic Fluid Color: Clear Amniotic Fluid Amount: Scant Amniotic Fluid Odor: None STAGES OF LABOR Stage 1 hr: -16 Stage 1 min: -49 Stage 2 hr: 0 Stage 2 min: 20 Stage 3 hr: 0 Stage 3 min: 4 Total Time in Labor hr: -16 Total Time in Labor min: -25 VAGINAL DELIVERY Episiotomy: None Laceration #1: Vaginal Laceration Extension #1: N/A Laceration Repair: No Laceration Repair Note: superficial left vaginal laceration, hemostatic no repair needed. Sponge Count Correct: Yes Sharps Count Correct: Yes CSECTION DELIVERY Primary Indication: N/A Secondary Indication: N/A CSection Incidence: N/A Labor: N/A Elective: N/A CSection Incision: N/A BABY A INFORMATION Delivery Date/Time: 07/23/2018 01:58 Method of Delivery: Vaginal Born in Route : No : N/A Forceps: N/A Vacuum Extraction: N/A Shoulder Dystocia : No PRESENTATION/POSITION BABY A Presentation: Cephalic Cephalic Presentation: Vertex Vertex Position: Right Occipital Anterior Breech Presentation: N/A PLACENTA INFORMATION BABY A Placenta Delivery Time : 07/23/2018 02:02 Placenta Method of Delivery: Spontaneous Placenta Status: Delivered SCORES BABY A Heart Rate 1 min: >100 bpm Resp Effort 1 min: Good Cry Reflex Irritability 1 min: Cough or Sneeze or Pulls Away Muscle Tone 1 min: Active Motion Color 1 min: Blue/Pale Resuscitation Effort 1 min: Tactile Stimulation SCORE 1 MIN: 8 Heart Rate 5 min: >100 bpm Resp Effort 5 min: Good Cry Reflex Irritability 5 min: Cough or Sneeze or Pulls Away Muscle Tone 5 min: Active Motion Color 5 min: Blue/Pale Resuscitation Effort 5 min: Tactile Stimulation SCORE 5 MIN: 8 INFORMATION BABY A Gestational Age at Delivery: 41.0 Gestational Status: Late Term- 41- 41.6 Weeks Infant Outcome : Liveborn Infant Condition : Stable Sex: Male IDENTIFICATION BABY A Verification Date/Time: 07/23/2018 02:22 ID Band Number: [id number] Mother's Name Verified: Yes Infant RN Verifying Infant: E. Alexyslek RN/ N. Cabrera RN WEIGHT/LENGTH BABY A Infant Birthweight (gm): 3321 Infant Weight (lb): 7 Infant Weight (oz): 5 Infant Length (in): 21.75 Length (cm): 55.25 CORD INFORMATION BABY A No. Cord Vessels: 3 Nuchal Cord : N/A Cord Blood Taken: Yes-For Eval (Mom's Blood Type - or O+) Infant Suction: Mouth ASSESSMENT BABY A Skin to Skin: Yes BABY B INFORMATION : N/A SIGNATURES Signature: with User ID: [email or web address] : I was personally available for consultation and serving as supervising physician for the MLP.
[2018-07-23] MEDS: DOCUSATE SODIUM 100 MG CAPSULE PO SCH ×2 (09:41→19:08)
[2018-07-23] MEDS: SENNOSIDES/DOCUSATE 8.6-50 MG 1 EACH TABLET PO SCH (09:41)
[2018-07-23] MEDS: FERROUS SULFATE 325 MG TABLET PO SCH ×2 (09:41→19:08)
[2018-07-23] MEDS: FAMOTIDINE 20 MG TABLET PO SCH ×2 (09:41→21:08)
[2018-07-23] MEDS: PRENATAL VITAMIN W DHA CAPSULE PO SCH (09:41)
[2018-07-24] MEDS: IBUPROFEN 800 MG TABLET PO SCH ×3 (06:21→22:43)
[2018-07-24 07:42] LABS: HEMATOCRIT 31.4 % (36.0-47.0); HEMOGLOBIN 10.4 g/dL (12.0-15.5); MEAN CORPUSCULAR HEMOGLOBIN 28.6 pg (27.0-33.4); MEAN CORPUSCULAR VOLUME 87 fl (80-97); PLATELET COUNT 174 10^3/uL (150-450); RED BLOOD COUNT 3.63 10^6/uL (3.72-5.28); RED CELL DISTRIBUTION WIDTH 14.4 % (11.5-14.0); WHITE BLOOD COUNT 11.3 10^3/uL (4.0-10.5)
[2018-07-24] MEDS: FERROUS SULFATE 325 MG TABLET PO SCH ×2 (10:16→17:28)
[2018-07-24] MEDS: SENNOSIDES/DOCUSATE 8.6-50 MG 1 EACH TABLET PO SCH (10:16)
[2018-07-24] MEDS: FAMOTIDINE 20 MG TABLET PO SCH ×2 (10:17→22:43)
[2018-07-24] MEDS: DOCUSATE SODIUM 100 MG CAPSULE PO SCH ×2 (10:17→17:27)
[2018-07-24] MEDS: PRENATAL VITAMIN W DHA CAPSULE PO SCH (10:17)
--- NOTE | 2018-07-24 14:22 | PDOC PROGRESS REPORT ---
Subjective-OB Progress Note for:: 07/24/18 Subjective: 18yo G1 now P1 s/p . Pt. ambulating and voiding without difficulty. Reports pain well tolerated with medication. Denies SOB/dizziness/lightheadness or any concerns at this time. Physical Exam (OB) Vital Signs: Temp Pulse Resp BP Pulse Ox 98.0 F 71 15 114/69 100 07/24/18 07:57 07/24/18 07:57 07/24/18 07:57 07/24/18 07:57 07/24/18 07:57 Intake & Output 07/23/18 07/24/18 07/25/18 06:59 06:59 06:59 Intake Total 1000 1000 440 Balance 1000 1000 440 - General General Appearance: Appears well In distress: None - PIH/Pre-Eclampsia DTR's: 1 + Clonus: Negative Headache: Absent Epigastric Pain: No Visual Changes: No - Episiotomy/Laceration Episiotomy/Laceration Note: perineal abrasions, hemostatic - Lochia Lochia Amount: Small 10-25 ml Lochia Color: Rubra/Red - Abdomen Description: Soft, Round Hernia Present: No Fundal Description: Firm, Midline Fundal Height: u/u - u/2 - Respiratory Respiratory Status: No respiratory distress - Extremities Upper extremity: Normal inspection Lower extremities: Edema Foot: Edema - Neurological Cognition: Normal Orientation: AAOx4 - Psychological Associated symptoms: Normal affect, Normal mood Objective-Diagnostic Laboratory: 07/24/18 07:31 07/24/18 07:31 WBC 11.3 H RBC 3.63 L Hgb 10.4 L Hct 31.4 L MCV 87 MCH 28.6 MCHC 33.0 RDW 14.4 H Plt Count 174 Assessment and Plan(PN) - Assessment and Plan (1) Perineal abrasion Is this a current diagnosis for this admission?: Yes Plan: continue to monitor for s/s of infection (2) Anemia complicating , third trimester Is this a current diagnosis for this admission?: Yes Plan: increase dietary iron and FeSO4 BID (3) Vaginal delivery Is this a current diagnosis for this admission?: Yes Plan: routine pp care, continue to monitor for s/s of infection (4) Post term at 41 weeks gestation Is this a current diagnosis for this admission?: Yes Plan: delivered - Time Spent with Patient Time with patient: Less than 15 minutes Medications reviewed and adjusted accordingly: Yes - Disposition Anticipated Discharge: Home Within: within 24 hours
[2018-07-25] MEDS: IBUPROFEN 800 MG TABLET PO SCH (05:28)
[2018-07-25 09:15] VITALS: BP 118/71
[2018-07-25] MEDS: FAMOTIDINE 20 MG TABLET PO SCH (09:51)
[2018-07-25] MEDS: PRENATAL VITAMIN W DHA CAPSULE PO SCH (09:51)
[2018-07-25] MEDS: FERROUS SULFATE 325 MG TABLET PO SCH (09:51)
[2018-07-25] MEDS: DOCUSATE SODIUM 100 MG CAPSULE PO SCH (09:51)
[2018-07-25] MEDS: SENNOSIDES/DOCUSATE 8.6-50 MG 1 EACH TABLET PO SCH (09:51)
--- NOTE | 2018-07-25 10:13 | PDOC DISCHARGE SUMMARY ---
Final Diagnosis Discharge Date: 07/25/18 - PP Day #2, doing well, bottlefeeding, O+, Rubella immune - Final Diagnosis (2) Perineal abrasion Is this a current diagnosis for this admission?: Yes (3) Post term at 41 weeks gestation Is this a current diagnosis for this admission?: Yes (4) Vaginal delivery Is this a current diagnosis for this admission?: Yes Discharge Data - Discharge Medication Home Medications: 95/Iron Fum/Folic/Dha [ + Dha Combo Pack] 1 tab PO DAILY 02/10/18 Reason(s) for Admission: Induction of Labor Intrapartum Procedure(s): Spontaneous Vaginal Delivery Complication(s): Laceration-Perineal Laceration-Degree: 1st - Diagnosis Test Laboratory: Temp Pulse Resp BP Pulse Ox 98.4 F 76 16 118/71 100 07/25/18 08:01 07/25/18 08:01 07/25/18 08:01 07/25/18 08:01 07/25/18 08:01 07/22/18 07/22/18 07/24/18 05:40 06:12 07:31 RBC 3.71 L 3.63 L Hgb 10.8 L 10.4 L Hct 31.7 L 31.4 L Urine Opiates Screen NEGATIVE - Discharge information/Instructions Discharge Activity: Activity As Tolerated, No Lifting Over 10 Pounds, Pelvic Rest Discharge Diet: As Tolerated, Regular Disposition: HOME, SELF-CARE Follow up with: [facility] in: 4, Weeks
== END 2018-07-25 15:01 | disposition home or self-care (01) | DRG 807 ==
LOC: LR 05:32 → 2S 07-23 08:22
PROVIDERS: ADMIT Obstetrics & Gynecology; ATTEND Obstetrics & Gynecology
PROC: 3E0P7VZ Introduction of Hormone into Female Reproductive, Via Natural or Artificial Opening (ICD-10-PCS; 2018-07-22)
PROC: 10907ZC Drainage of Amniotic Fluid, Therapeutic from Products of Conception, Via Natural or Artificial Opening (ICD-10-PCS; 2018-07-22)
PROC: 4A1HXCZ Monitoring of Products of Conception, Cardiac Rate, External Approach (ICD-10-PCS; 2018-07-22)
PROC: 10E0XZZ Delivery of Products of Conception, External Approach (ICD-10-PCS; principal; 2018-07-23)
DX: O48.0 Post-term pregnancy (principal); Z37.0 Single live birth; O99.013 Anemia complicating pregnancy, third trimester; D64.9 Anemia, unspecified; Z91.040 Latex allergy status; Z91.018 Allergy to other foods; Z91.048 Other nonmedicinal substance allergy status; Z3A.41 41 weeks gestation of pregnancy
CPT/HCPCS: 36415; 80307; 81005; 85025; 85027; 86592; 86850; 86900; 86901; 94760; C1726; J2300; J2550; J2590; J3010; J3490

== ENCOUNTER → 2019-11-17 | Outpatient (CLI) | payer OTHER ==
--- NOTE | 2019-11-17 12:56 | RADIOLOGY REPORT (SQ) ---
EXAM DESCRIPTION: LUMBAR SPINE 2 VIEWS IMAGES COMPLETED DATE/TIME: 11/17/2019 12:39 pm REASON FOR STUDY: LOW BACK PAIN M54.5 LOW BACK PAIN COMPARISON: None. NUMBER OF VIEWS: Two views. TECHNIQUE: AP and lateral radiographic images acquired of the lumbar spine. LIMITATIONS: None. FINDINGS: MINERALIZATION: Normal. SEGMENTATION: Normal. No transitional anatomy. ALIGNMENT: Minimal to very slight anterolisthesis of L5 on S1. VERTEBRAE: Maintained height. No fracture or worrisome bone lesion. DISCS: Preserved height. No significant osteophytes or end plate irregularity. POSTERIOR ELEMENTS: Pedicles and facets are intact. Pars defect suggested at L5. HARDWARE: None in the spine. PARASPINAL SOFT TISSUES: Normal. PELVIS: Intact as visualized. No fractures or worrisome bone lesions. SI joints intact. OTHER: Prior cholecystectomy. IUD overlies the midline pelvic region. IMPRESSION: 1. Pars defect suggested at L5, suggesting spondylolysis. Minimal to very slight anter olisthesis of L5 on S1. TECHNICAL DOCUMENTATION: JOB ID: [id number] 2010 [employer]- All Rights Reserved Reading location - IP[facility]workstation name: [email or web address]
== END ==
LOC: OD 12:20
PROVIDERS: ATTEND Family Medicine
DX: M54.5 Low back pain (principal)
CPT/HCPCS: 72100

== ENCOUNTER → 2020-05-20 | Outpatient (CLI) | payer OTHER ==
[2020-05-20 16:45] LABS: ALBUMIN 5.2 g/dL (3.5-5.0); ALKALINE PHOSPHATASE 71 U/L (38-126); AMYLASE 83 U/L (30-110); ANION GAP 8 (5-19); ASPARTATE AMINO TRANSFERASE 34 U/L (14-36); BILIRUBIN,DIRECT 0.1 mg/dL (0.0-0.4); BILIRUBIN,TOTAL 0.8 mg/dL (0.2-1.3); BLOOD UREA NITROGEN 14 mg/dL (7-20); CALCIUM 9.7 mg/dL (8.4-10.2); CARBON DIOXIDE 29 mmol/L (22-30); CHLORIDE 101 mmol/L (98-107); GLUCOSE 93 mg/dL (75-110); POTASSIUM 3.9 mmol/L (3.6-5.0); TOTAL PROTEIN 8.4 g/dL (6.3-8.2)
== END ==
LOC: OD 15:25
PROVIDERS: ATTEND Family Medicine
DX: R10.84 Generalized abdominal pain (principal); A04.8 Other specified bacterial intestinal infections
CPT/HCPCS: 36415; 80053; 82150; 83690